=== PATIENT | male | born 1955 | race American Indian/Alaskan Native ===

== ENCOUNTER 2020-06-03 13:03 | Observation (INO) | payer MEDICARE ==
--- NOTE | 2020-06-03 13:29 | Emergency Department Report ---
ED Neuro Deficit HPI - General Chief Complaint: Neuro Symptoms/Deficit Stated Complaint: POSS CVA Time Seen by Provider: 06/03/20 13:11 Source: patient, EMS Mode of arrival: Stretcher Limitations: Other - History of Present Illness Initial Comments: [employer] [facility] TeleNeurology Consult Services Date of Service: 06/03/2020 13:06:57 Impression: Left Hemispheric Infarct Comments/Sign-Out: Patient is a 65 yo male with a PMH of recent stroke last month without residual deficits (p/w left facial numbness), BPH, bladder mass, h/o syncope, HTN who p/w slurred speech, left facial numbness. LNK 21:30. CTH reviewed. On exam mild left facial numbness, dysarthria and minimal facial droop. Exam not c/w LVO. Mechanism of Stroke: Not Clear Metrics: Last Known Well: 06/02/2020 21:30:00 [employer] Notification Time: 06/03/2020 13:06:21 Arrival Time: 06/03/2020 13:05:00 Stamp Time: 06/03/2020 13:06:57 Time First Login Attempt: 06/03/2020 13:11:12 Video Start Time: 06/03/2020 13:11:12 Symptoms: slurred speech, left facial numbness NIHSS Start Assessment Time: 06/03/2020 13:16:05 Patient is not a candidate for tPA. Patient was not deemed candidate for tPA thrombolytics because of Last Well Known Above 4.5 Hours. Video End Time: 06/03/2020 13:25:34 CT head was reviewed and results were: Right BG lacunar stroke noted, possibly recent subacute stroke Clinical Presentation is not Suggestive of Large Vessel Occlusive Disease ED Physician notified of diagnostic impression and management plan on 06/03/2020 13:25:33 Our recommendations are outlined below. Recommendations: Activate Stroke Protocol Admission/Order Set Stroke/Telemetry Floor Neuro Checks Bedside Swallow Eval DVT Prophylaxis IV Fluids, Normal Saline Head of Bed 30 Degrees Euglycemia and Avoid Hyperthermia (PRN Acetaminophen) ASA 325mg once CTH resulted if no medical contraindication Routine Consultation with Inhouse Neurology for Follow up Care Sign Out: Discussed with Emergency Department Provider History of Present Illness: Patient is a 65 year old Male. Patient was brought by EMS for symptoms of slurred speech, left facial numbness Patient is a 65 yo male with a PMH of recent stroke last month without residual deficits (p/w left facial numbness), BPH, bladder mass, h/o syncope, HTN who p/w slurred speech, left facial numbness. LNK 21:30. Last seen normal was beyond 4.5 hours of presentation. There is history of recent stroke. Past Medical History: Hypertension Anticoagulant use: No Antiplatelet use: ASA, plavix Examination: 1A: Level of Consciousness - Alert; keenly responsive + 0 1B: Ask Month and Age - Both Questions Right + 0 1C: Blink Eyes & Squeeze Hands - Performs Both Tasks + 0 2: Test Horizontal Extraocular Movements - Normal + 0 3: Test Visual Ceja - No Visual Loss + 0 4: Test Facial Palsy (Use Grimace if Obtunded) - Minor paralysis (flat nasolabial fold, smile asymmetry) + 1 5A: Test Left Arm Motor Drift - No Drift for 10 Seconds + 0 5B: Test Right Arm Motor Drift - No Drift for 10 Seconds + 0 6A: Test Left Leg Motor Drift - No Drift for 5 Seconds + 0 6B: Test Right Leg Motor Drift - No Drift for 5 Seconds + 0 7: Test Limb Ataxia (FNF/Heel-Sarmiento) - No Ataxia + 0 8: Test Sensation - Mild-Moderate Loss: Less Sharp/More Dull + 1 9: Test Language/Aphasia - Normal; No aphasia + 0 10: Test Dysarthria - Mild-Moderate Dysarthria: Slurring but can be understood + 1 11: Test Extinction/Inattention - No abnormality + 0 NIHSS Score: 3 Patient/Family was informed the Neurology Consult would happen via TeleHealth consult by way of interactive audio and video telecommunications and consented to receiving care in this manner. Due to the immediate potential for life-threatening deterioration due to underlying acute neurologic illness, I spent 35 minutes providing critical care. This time includes time for face to face visit via telemedicine, review of medical records, imaging studies and discussion of findings with providers, the patient and/or family. Dr Liveir Vega [employer] Case [id number] - Related Data Home Medications: Home Medications Medication Instructions Recorded Confirmed Last Taken AtorvaSTATin [Lipitor] 40 mg PO QHS 12/30/19 12/30/19 Unknown Tamsulosin [Flomax] 0.4 mg PO QDAY 12/30/19 12/30/19 Unknown amLODIPine 10 mg PO QDAY 12/30/19 12/30/19 Unknown lisinopriL [Zestril TAB] 40 mg PO QDAY 12/30/19 12/30/19 Unknown Allergies/Adverse Reactions: Allergies Allergy/AdvReac Type Severity Reaction Status Date / Time No Known Allergies Allergy Verified 12/29/19 23:20 ED Review of Systems ROS: Stated complaint: POSS CVA Other details as noted in HPI ED Past Medical Hx - Past Medical History Hx Hypertension: Yes Hx Renal Disease: No (BPH) Hx Headaches / Migraines: Yes (Had cva sx with diallo.) Additional medical history: high cholestrol - Surgical History Additional Surgical History: neck - Social History Smoking Status: Current Every Day Smoker - Medications Home Medications: Home Medications Medication Instructions Recorded Confirmed Last Taken Type AtorvaSTATin [Lipitor] 40 mg PO QHS 12/30/19 12/30/19 Unknown History Tamsulosin [Flomax] 0.4 mg PO QDAY 12/30/19 12/30/19 Unknown History amLODIPine 10 mg PO QDAY 12/30/19 12/30/19 Unknown History lisinopriL [Zestril TAB] 40 mg PO QDAY 12/30/19 12/30/19 Unknown History ED Neuro Physical Exam - General Limitations: Other Suspected Stroke: Yes - NIHSS Assessment Interval: Baseline 1a. Level of Consciousness: alert/keenly responsive 1b. LOC Questions: answers both correctly 1c. LOC Commands: performs tasks correctly 2. Best Gaze: normal 3. Visual: no visual loss 4. Facial Palsy: minor paralysis 5b. Motor Arm Right: no drift 5a. Motor Arm Left: no drift 6a. Motor Leg Left: no drift 6b. Motor Leg Right: no drift 7. Limb Ataxia: absent 8. Sensory: mild/moderate sensory loss 9. Best Language: no aphasia 10. Dysarthria: mild/moderate dysarthria 11. Extinction/Inattention: no abnormality Total Score: 3 Stroke Severity: Minor Stroke Critical care attestation.: If time is entered above; I have spent that time in minutes in the direct care of this critically ill patient, excluding procedure time. ED Disposition Clinical Impression: Stroke Disposition: PAT REG,TRIAGED-NO MSE Is pt being admited?: Yes Condition: Stable
--- NOTE | 2020-06-03 13:35 | Cat Scan Report ---
CT head/brain wo con INDICATION / CLINICAL INFORMATION: 65 years Male; MAIN. TECHNIQUE: Routine CT head without contrast. All CT scans at this location are performed using CT dos e reduction for ALARA by means of automated exposure control. COMPARISON: The study is compared to the previous CT of 12/30/2019. FINDINGS: BRAIN / INTRACRANIAL CONTENTS: There has been interval development of infarcts involving the right co nathalie radiata from the previous CT at. However, this finding would appear to be late subacute given th e degree of decreased attenuation and would correlate with the patient's reported history of cerebrov ascular accident 1 month ago. Otherwise I, there is mild cerebral white matter disease most consisten t with microvascular angiopathy. The findings include the left periventricular region. The ventricula r system is unchanged in size and configuration. There is no CT evidence of acute intracranial hemorr fred. ORBITS: No significant abnormality of visualized orbits. SINUSES / MASTOIDS: No significant abnormality in the visualized paranasal sinuses or mastoid air yesika ls. CRANIOCERVICAL JUNCTION: No significant abnormality. ADDITIONAL FINDINGS: None. IMPRESSION: 1. There has been interval development of an infarct involving right campbell radiata from 12/30/2019 th e this finding would appear to be subacute and correlates with the reported history of cerebrovascula r accident 1 month ago as detailed above. 2. There is otherwise mild microvascular angiopathy without CT evidence of acute intracranial hemorrh age. The study was specified as code stroke and called to the emergency room physician at 12:30 PM Central standard time. Signer Name: Davian Sandoval MD Signed: 06/03/2020 1:31 PM Workstation Name: [id number]
--- NOTE | 2020-06-03 13:50 | Emergency Department Report ---
ED Neuro Deficit HPI - General Chief Complaint: Neuro Symptoms/Deficit Stated Complaint: POSS CVA Time Seen by Provider: 06/03/20 13:11 Source: patient, EMS Mode of arrival: Stretcher Limitations: Other - History of Present Illness Initial Comments: 65-year-old male presents to ED for possible stroke. Patient states last night around 9:30 PM he began to have slurred speech and facial droop. Patient waited until this afternoon to call EMS. He denies any other weakness or numbness. Patient reports having had a CVA last month, in which he was seen and evaluated at [facility]. Patient states he has left facial numbness from his previous CVA. Patient is not currently on any anticoagulants. Patient reports tobacco use. -: Last night Location: speech History of same: No Place: home Severity: moderate Improves With: none Worsens With: none On Anticoagulants: No Associated Symptoms: denies other symptoms. denies: chest pain, fever/chills, headaches, shortness of breath - Related Data Home Medications: Home Medications Medication Instructions Recorded Confirmed Last Taken AtorvaSTATin [Lipitor] 40 mg PO QHS 12/30/19 12/30/19 Unknown Tamsulosin [Flomax] 0.4 mg PO QDAY 12/30/19 12/30/19 Unknown amLODIPine 10 mg PO QDAY 12/30/19 12/30/19 Unknown lisinopriL [Zestril TAB] 40 mg PO QDAY 12/30/19 12/30/19 Unknown Allergies/Adverse Reactions: Allergies Allergy/AdvReac Type Severity Reaction Status Date / Time No Known Allergies Allergy Verified 12/29/19 23:20 ED Review of Systems ROS: Stated complaint: POSS CVA Other details as noted in HPI Comment: All other systems reviewed and negative Constitutional: denies: chills, fever Respiratory: denies: shortness of breath Cardiovascular: denies: chest pain Neurological: denies: headache, weakness ED Past Medical Hx - Past Medical History Hx Hypertension: Yes Hx Renal Disease: No (BPH) Hx Headaches / Migraines: Yes (Had cva sx with diallo.) Additional medical history: high cholestrol - Surgical History Additional Surgical History: neck - Social History Smoking Status: Current Every Day Smoker - Medications Home Medications: Home Medications Medication Instructions Recorded Confirmed Last Taken Type AtorvaSTATin [Lipitor] 40 mg PO QHS 12/30/19 12/30/19 Unknown History Tamsulosin [Flomax] 0.4 mg PO QDAY 12/30/19 12/30/19 Unknown History amLODIPine 10 mg PO QDAY 12/30/19 12/30/19 Unknown History lisinopriL [Zestril TAB] 40 mg PO QDAY 12/30/19 12/30/19 Unknown History ED Neuro Physical Exam - General Limitations: Other General appearance: alert, in no apparent distress Suspected Stroke: Yes - Head Head exam: Present: atraumatic, normocephalic - Eye Eye exam: Present: normal appearance, PERRL, EOMI - ENT ENT exam: Present: mucous membranes moist - Neck Neck exam: Present: normal inspection - Respiratory Respiratory exam: Present: normal lung sounds bilaterally. Absent: respiratory distress - Cardiovascular Cardiovascular Exam: Present: regular rate, normal rhythm - GI/Abdominal GI/Abdominal exam: Present: soft. Absent: distended, tenderness - Extremities Exam Extremities exam: Present: normal inspection - Neurological Exam Neurological exam: Present: alert, oriented X3 - NIHSS Assessment Interval: Baseline 1a. Level of Consciousness: alert/keenly responsive 1b. LOC Questions: answers both correctly 1c. LOC Commands: performs tasks correctly 2. Best Gaze: normal 3. Visual: no visual loss 4. Facial Palsy: minor paralysis 5b. Motor Arm Right: no drift 5a. Motor Arm Left: no drift 6a. Motor Leg Left: no drift 6b. Motor Leg Right: no drift 7. Limb Ataxia: absent 8. Sensory: mild/moderate sensory loss 9. Best Language: no aphasia 10. Dysarthria: mild/moderate dysarthria 11. Extinction/Inattention: no abnormality Total Score: 3 Stroke Severity: Minor Stroke - Psychiatric Psychiatric exam: Present: normal affect, normal mood - Skin Skin exam: Present: warm, dry, intact, normal color ED Course Vital Signs 06/03/20 06/03/20 06/03/20 13:30 13:45 14:01 Pulse Rate 57 L 63 Respiratory 19 20 Rate Blood Pressure 137/71 137/71 O2 Sat by Pulse 96 97 98 Oximetry 06/03/20 14:15 Pulse Rate 58 L Respiratory 17 Rate Blood Pressure 137/71 O2 Sat by Pulse 96 Oximetry - Lab Data Result diagrams: 06/03/20 14:00 06/03/20 14:00 Lab Results 0806/03/20 06/03/20 Range/Units 14:00 14:00 14:00 WBC 6.3 (4.5-11.0) K/mm3 RBC 3.40 L (3.65-5.03) M/mm3 Hgb 11.7 L (11.8-15.2) gm/dl Hct 34.5 L (35.5-45.6) % MCV 101 H (84-94) fl MCH 34 H (28-32) pg MCHC 34 (32-34) % RDW 13.4 (13.2-15.2) % Plt Count 325 (140-440) K/mm3 Baso % (Auto) Diamond Cleaver PT 12.7 (12.2-14.9) Sec. INR 0.94 (0.87-1.13) APTT 25.9 (24.2-36.6) Sec. Thrombin Time (15.1-19.6) Sec. Sodium 140 (137-145) mmol/L Potassium 4.0 (3.6-5.0) mmol/L Chloride 105.0 (98-107) mmol/L Carbon Dioxide 24 (22-30) mmol/L Anion Gap 15 mmol/L BUN 16 (9-20) mg/dL Creatinine 1.1 (0.8-1.3) mg/dL Estimated GFR > 60 ml/min BUN/Creatinine Ratio 15 % Glucose 91 (75-100) mg/dL Calcium 9.3 (8.4-10.2) mg/dL Troponin T < 0.010 (0.00-0.029) ng/mL 06/03/20 Range/Units 14:00 WBC (4.5-11.0) K/mm3 RBC (3.65-5.03) M/mm3 Hgb (11.8-15.2) gm/dl Hct (35.5-45.6) % MCV (84-94) fl MCH (28-32) pg MCHC (32-34) % RDW (13.2-15.2) % Plt Count (140-440) K/mm3 Baso % (Auto) PT (12.2-14.9) Sec. INR (0.87-1.13) APTT (24.2-36.6) Sec. Thrombin Time 15.1 (15.1-19.6) Sec. Sodium (137-145) mmol/L Potassium (3.6-5.0) mmol/L Chloride (98-107) mmol/L Carbon Dioxide (22-30) mmol/L Anion Gap mmol/L BUN (9-20) mg/dL Creatinine (0.8-1.3) mg/dL Estimated GFR ml/min BUN/Creatinine Ratio % Glucose (75-100) mg/dL Calcium (8.4-10.2) mg/dL Troponin T (0.00-0.029) ng/mL - EKG Data -: EKG Interpreted by Me EKG shows normal: sinus rhythm, axis, intervals, QRS complexes, ST-T waves Rate: bradycardia (rate 55) Interpretation: no acute changes - Radiology Data Radiology results: report reviewed, image reviewed - Medical Decision Making 65-year-old male with facial droop and slurred speech since last night. CT head negative for any acute abnormalities. Patient reports recent stroke 1 month ago with residual left facial numbness. Patient has no extremity numbness or weakness. NIH score of 3. Patient seen and evaluated by tele-neurologist, he is not a candidate for TPA at this time. Will admit for further stroke work-up. Patient will be admitted by hospitalist, Dr. Gonzalez. - Differential Diagnosis CVA, malignancy Critical care attestation.: If time is entered above; I have spent that time in minutes in the direct care of this critically ill patient, excluding procedure time. ED Disposition Clinical Impression: Stroke Disposition: OP ADMIT IP TO THIS HOSP Is pt being admited?: Yes Condition: Stable Time of Disposition: 15:27
[2020-06-03 14:19] LABS: Hematocrit 34.5 % (35.5-45.6); Hemoglobin 11.7 gm/dl (11.8-15.2); Mean Corpuscular HGB Conc 34 % (32-34); Mean Corpuscular Volume 101 fl (84-94); Platelet Count 325 K/mm3 (140-440); Red Cell Distribution Width 13.4 % (13.2-15.2)
[2020-06-03 14:33] LABS: INR 0.94 (0.87-1.13)
[2020-06-03 14:34] LABS: Partial Thromboplastin Time 25.9 Sec. (24.2-36.6)
[2020-06-03 14:37] LABS: BUN/Creatinine Ratio 15; Blood Urea Nitrogen 16 mg/dL (9-20); Calcium 9.3 mg/dL (8.4-10.2); Hemolysis Index 2
[2020-06-03] MEDS ORDERED: ASPIRIN 325 MG TAB PO ONE (14:41)
--- NOTE | 2020-06-03 14:44 | History and Physical Report ---
History of Present Illness Chief complaint: I feel weak History of present illness: 65 YO Male with Obesity, Nicotine Dependence, HTN, HLD, BPH presents to ED for evaluation. Patient states that he experienced a sudden onset of slurred speech and facial drooping around 2130 hrs. but decided to go to sleep. Patient awoke from sleep this morning around 0830 hrs. and was found to have persistent symptoms. EMS was notified and upon arrival the patient was found to have a neurologic deficit and was subsequently transported to [facility] for further care and evaluation of the aforementioned symptoms. Patient seen and evaluated in the emergency department. Lab and imaging studies reviewed. Tele-neurology service was consulted. Patient deemed not to be a candidate for TPA. Patient found to have clinical symptoms consistent with CVA. Patient initiated on CVA protocol and placed in observation status for further evaluation. Patient denies fever, chills, chest pain, palpitations, productive cough, skin rash, recent ill contacts, or known exposure to COVID-19. Prior admission on 12/30/2019 reviewed. All medication listed at time of admission has been reconciled. Past History Past Medical History: hypertension, hyperlipidemia, other (See HPI) Past Surgical History: Other (Cervical spine surgery) Social history: single, smoking. denies: alcohol abuse Family history: hypertension Medications and Allergies Allergies Allergy/AdvReac Type Severity Reaction Status Date / Time No Known Allergies Allergy Verified 12/29/19 23:20 Home Medications Medication Instructions Recorded Confirmed Last Taken Type AtorvaSTATin [Lipitor] 40 mg PO QHS 12/30/19 12/30/19 Unknown History Tamsulosin [Flomax] 0.4 mg PO QDAY 12/30/19 12/30/19 Unknown History amLODIPine 10 mg PO QDAY 12/30/19 12/30/19 Unknown History lisinopriL [Zestril TAB] 40 mg PO QDAY 12/30/19 12/30/19 Unknown History Review of Systems Constitutional: no weight loss, no weight gain, no fever, no chills Ears, nose, mouth and throat: no ear pain, no ear discharge, no tinnitis, no decreased hearing, no nasal congestion Cardiovascular: no chest pain, no palpitations, no edema, no lightheadedness Respiratory: no cough, no cough with sputum, no hemoptysis, no shortness of breath Gastrointestinal: no abdominal pain, no vomiting, no constipation, no change in bowel habits Genitourinary Male: no hematuria, no discharge, no urinary frequency, no urinary hesitancy, no incontinence Rectal: no pain, no incontinence, no bleeding Musculoskeletal: no neck stiffness, no shooting arm pain, no arm numbness/tingling, no shooting leg pain, no leg numbness/tingling Integumentary: no rash, no redness, no sores, no wounds, no jaundice Neurological: no transient paralysis, no paralysis, no parathesias, no numbness, no tingling Psychiatric: no anxiety, no memory loss, no sleep disturbances, no hypersomnia, no change in appetite Endocrine: no cold intolerance, no heat intolerance, no excessive thirst, no polydipsia, no excessive sweating Hematologic/Lymphatic: no easy bruising, no lymphedema Allergic/Immunologic: no urticaria, no wheezing, no persistent infections, no angioedema Exam - Constitutional Vitals: Temp Pulse Resp BP Pulse Ox 58 L 17 137/71 96 06/03/20 14:15 06/03/20 14:15 06/03/20 14:15 06/03/20 14:15 General appearance: Present: no acute distress, well-nourished - EENT Eyes: Present: PERRL ENT: hearing intact, clear oral mucosa - Neck Neck: Present: supple, normal ROM - Respiratory Respiratory effort: normal Respiratory: bilateral: CTA - Cardiovascular Heart Sounds: Present: S1 & S2. Absent: rub, click - Extremities Extremities: pulses symmetrical, No edema Peripheral Pulses: within normal limits - Abdominal General gastrointestinal: Present: soft, non-tender, non-distended, normal bowel sounds Male genitourinary: Present: normal - Integumentary Integumentary: Present: clear, warm, dry - Musculoskeletal Musculoskeletal: generalized weakness - Psychiatric Psychiatric: appropriate mood/affect, intact judgment & insight - Neurologic Neurologic: CNII-XII intact, moves all extremities HEART Score - HEART Score Troponin: Troponin T < 0.010 ng/mL (0.00-0.029) 06/03/20 14:00 Results - Labs CBC & Chem 7: 06/03/20 14:00 06/03/20 14:00 Labs: Abnormal lab results 06/03/20 Range/Units 14:00 RBC 3.40 L (3.65-5.03) M/mm3 Hgb 11.7 L (11.8-15.2) gm/dl Hct 34.5 L (35.5-45.6) % MCV 101 H (84-94) fl MCH 34 H (28-32) pg Assessment and Plan - Patient Problems (1) CVA (cerebral vascular accident) Current Visit: Yes Status: Acute Plan to address problem: CVA protocol: CT head, neuro check, carotid Doppler from 320 reviewed, echocardiogram from 320 reviewed, antiplatelet therapy, lipid panel, statin therapy, tele-neurology consulted. (2) Hypertension Current Visit: Yes Status: Acute Qualifiers: Hypertension type: essential hypertension Qualified Code(s): I10 - Esse ntial (primary) hypertension Plan to address problem: Monitor blood pressure every shift, continue medical management. (3) Hyperlipidemia Current Visit: Yes Status: Acute Qualifiers: Hyperlipidemia type: mixed hyperlipidemia Qualified Code(s): E78.2 - Mixed hyperlipidemia Plan to address problem: Lipid panel, statin therapy. (4) DVT prophylaxis Current Visit: Yes Status: Acute Plan to address problem: SCD to bilateral lower extremities while in bed, (5) Advance care planning Current Visit: Yes Status: Acute Plan to address problem: Disease education conducted, patient is full code, patient prognosis discussed, +30 minutes.
[2020-06-03] MEDS ORDERED: ACETAMINOPHEN 325 MG TAB PO PRN (14:45)
[2020-06-03] MEDS ORDERED: ONDANSETRON 4 MG/2 ML INJ IV PRN (14:45)
[2020-06-03] MEDS ORDERED: METOCLOPRAMIDE 10 MG TAB PO PRN (14:45)
[2020-06-03] MEDS ORDERED: MAGNESIUM HYDROXIDE (MOM) ORAL LIQD UDC PO PRN (14:45)
[2020-06-03] MEDS ORDERED: PROMETHAZINE 25 MG RECT SUPP PR PRN (14:45)
[2020-06-03 15:58] LABS: Total Cells Counted 100
[2020-06-03 15:59] LABS: Platelet Estimate Consistent w Auto
[2020-06-04 06:11] LABS: Chol/HDL Ratio 5.83 %
[2020-06-04] MEDS ORDERED: TAMSULOSIN 0.4 MG CAP PO SCH (10:00)
[2020-06-04] MEDS ORDERED: amLODIPine 10 MG TAB PO SCH (10:00)
[2020-06-04] MEDS ORDERED: ASPIRIN 325 MG TAB PO SCH (10:00)
[2020-06-04] MEDS ORDERED: LISINOPRIL 40 MG TAB PO SCH (10:00)
--- NOTE | 2020-06-04 11:15 | Discharge Summary ---
Providers - Providers Date of Admission: 06/03/20 14:45 Attending physician: MITCHEL MASON 06/03/20 14:45 Occupational Therapy Evaluate and Treat [CONS] Routine Comment: Reason For Exam: Neuro deficits Physical Therapy Evaluation and Treat [CONS] Routine Comment: Reason For Exam: Neuro deficits Hospitalization Condition: Fair Hospital course: 65 YO Male with Obesity, Nicotine Dependence, HTN, HLD, BPH presents to ED for evaluation. Patient stated that he experienced a sudden onset of slurred speech and facial drooping around 2130 hrs. but decided to go to sleep. Patient awoke from sleeparound 0830 hrs. and was found to have persistent symptoms. EMS was notified and upon arrival the patient was found to have a neurologic deficit and was subsequently transported to [facility] for further care and evaluation of the aforementioned symptoms. Patient seen and evaluated in the emergency department. Lab and imaging studies reviewed. Tele-neurology service was consulted. Patient deemed not to be a candidate for TPA. Patient found to have clinical symptoms consistent with CVA. Patient initiated on CVA protocol and placed in observation status for further evaluation. Patient convalesced well during hospital course. Patient medically optimized and back to usual state of health. Patient counseled regarding lifestyle modifications that will decrease his risk of recurrent stroke. Patient initiated on dual antiplatelet therapy. Patient seen and evaluated prior to discharge but no significant new physical exam findings. Patient discharged home instructed to follow-up with primary care physician within 1 week. Patient also instructed to follow-up with neurology PRN. 35 minutes dedicated to patient discharge. Disposition: [id number] TO HOME OR SELFCARE - Discharge Diagnoses (1) CVA (cerebral vascular accident) Status: Acute (2) Hypertension Status: Acute Qualifiers: Hypertension type: essential hypertension Qualified Code(s): I10 - Essential (primary) hypertension (3) Hyperlipidemia Status: Acute Qualifiers: Hyperlipidemia type: mixed hyperlipidemia Qualified Code(s): E78.2 - Mixed hyperlipidemia (4) DVT prophylaxis Status: Acute (5) Advance care planning Status: Acute Core Measure Documentation - Palliative Care Palliative Care/ Comfort Measures: Not Applicable - Core Measures Any of the following diagnoses?: stroke - Stroke Discharge Requirements Statin for LDL = or >70 mg/dl on DC: Yes Anticoag for atrial fib/atrial flutter: Not Applicable Antithrombotic for ischemic stroke: Yes Exam - Constitutional Vitals: Temp Pulse Resp BP Pulse Ox 97.7 F 57 L 20 148/74 94 06/04/20 06:03 06/04/20 09:46 06/04/20 06:03 06/04/20 09:46 06/04/20 06:03 General appearance: Present: no acute distress, well-nourished - EENT Eyes: Present: PERRL ENT: hearing intact, clear oral mucosa - Neck Neck: Present: supple, normal ROM - Respiratory Respiratory effort: normal Respiratory: bilateral: CTA - Cardiovascular Heart Sounds: Present: S1 & S2. Absent: rub, click - Extremities Extremities: pulses symmetrical, No edema Peripheral Pulses: within normal limits - Abdominal General gastrointestinal: Present: soft, non-tender, non-distended, normal bowel sounds Male genitourinary: Present: normal - Integumentary Integumentary: Present: clear, warm, dry - Musculoskeletal Musculoskeletal: gait normal, strength equal bilaterally - Psychiatric Psychiatric: appropriate mood/affect, intact judgment & insight - Neurologic Neurologic: CNII-XII intact, moves all extremities Plan Activity: advance as tolerated Diet: low fat, low cholesterol, low salt Follow up with: PRIMARY CARE, [Referring] - 3-5 Days Prescriptions: Aspirin [Aspirin BABY CHEW TAB] 81 mg PO QDAY #30 tab.chew Clopidogrel [Plavix] 75 mg PO QDAY #30 tablet
[2020-06-04 12:27] VITALS: BP 132/66
== END 2020-06-04 13:16 | disposition home or self-care (01) ==
LOC: ED 13:03 → 3A 14:45
PROVIDERS: ADMIT Internal Medicine; ATTEND Internal Medicine
DX: I63.9 Cerebral infarction, unspecified (principal); I10 Essential (primary) hypertension; R29.703 NIHSS score 3; E78.5 Hyperlipidemia, unspecified; N40.0 Benign prostatic hyperplasia without lower urinary tract symptoms; E78.00 Pure hypercholesterolemia, unspecified; F17.200 Nicotine dependence, unspecified, uncomplicated; Z79.899 Other long term (current) drug therapy
CPT/HCPCS: 36415; 70450; 80048; 80061; 84484; 85007; 85025; 85610; 85670; 85730; 93005; 97161; 99291; A9270; G0378